=== PATIENT | female | born 1955 | race Caucasian/White ===

== ENCOUNTER → 2018-05-26 | Outpatient (CLI) | payer OTHER | LOC: FIMAGING 09:49 | PROVIDERS: ATTEND Registered Nurse | DX: Z13.820 Encounter for screening for osteoporosis (principal); M81.0 Age-related osteoporosis without current pathological fracture; Z78.0 Asymptomatic menopausal state ==

== ENCOUNTER 2018-12-12 07:53 | Emergency (ER) | payer OTHER ==
[2018-12-12] MEDS ORDERED: IBUPROFEN 600 MG TAB PO ONE (08:12)
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
[2018-12-12 10:12] VITALS: BP 106/53
== END 2018-12-12 10:20 | disposition home or self-care (01) ==
LOC: EDUNIT#
DX: M79.641 Pain in right hand (principal); M53.3 Sacrococcygeal disorders, not elsewhere classified; V49.49XA Driver injured in collision with other motor vehicles in traffic accident, initial encounter; Y92.410 Unspecified street and highway as the place of occurrence of the external cause